=== PATIENT | male | born 1990 | race Caucasian/White ===

== ENCOUNTER 2022-01-15 23:28 | Emergency (ER) | payer BC ==
[2022-01-15 23:45] VITALS: BP 106/80; PULSE 71
[2022-01-15] MEDS ORDERED: Fluorescein 1 MG Ophth Strip EYEBOTH ONE (23:49)
[2022-01-16] MEDS ORDERED: ALPRAZolam 0.25 MG Tab PO ONE (00:31)
[2022-01-16] MEDS ORDERED: Sodium Chloride 0.9% 1,000 ML IRR SCH ×2 (00:45→01:00)
[2022-01-16] MEDS ORDERED: SODIUM CHLORIDE 0.9% IRR PRN (00:46)
[2022-01-16] MEDS ORDERED: Midazolam 1 MG/ML 2 ML SDV IM ONE (01:13)
[2022-01-16] MEDS ORDERED: Ibuprofen 800 MG Tab PO ONE (01:53)
== END 2022-01-16 02:00 | disposition left against medical advice (07) ==
LOC: JD.ED 23:28
DX: T15.12XA Foreign body in conjunctival sac, left eye, initial encounter (principal); T15.11XA Foreign body in conjunctival sac, right eye, initial encounter; F17.210 Nicotine dependence, cigarettes, uncomplicated; Z88.0 Allergy status to penicillin; Z88.2 Allergy status to sulfonamides; X58.XXXA Exposure to other specified factors, initial encounter
CPT/HCPCS: 96372; 99283; A9270; J2250; J7030; 99282